=== PATIENT | female | born 1995 | race African-American/Black ===

== ENCOUNTER 2021-05-14 03:25 | Emergency (ER) | payer MEDICAID ==
[~2021-05-14] VITALS: Ht 165.1 cm; Wt 45.2 kg
[2021-05-14 03:37] VITALS: BP 121/83
[2021-05-14] MEDS ORDERED: IBUPROFEN 600MG TABLET PO ONE (04:45)
== END 2021-05-14 04:57 | disposition home or self-care (01) ==
LOC: ER 03:25
DX: R51.9 Headache, unspecified (principal); R06.6 Hiccough; Z59.00 Homelessness unspecified
CPT/HCPCS: 99281